=== PATIENT | female | born 1970 | race Asian ===

== ENCOUNTER 2024-05-29 21:26 | Emergency (ER) | payer BC ==
[~2024-05-29] VITALS: Ht 154.9 cm; Wt 54.4 kg
[2024-05-29 21:50] VITALS: BP_SYST 149; PULSE 89; RESP 20; TEMP 98.1; O2SAT 99
[2024-05-29] MEDS: MORPHINE 4 MG INJ. 4 MG/ML VIAL IVP ONE (23:35)
[2024-05-29] MEDS: MORPHINE 2 MG/ML INJ. SYRINGE IVP ONE (23:38)
[2024-05-30 00:07] VITALS: BP_SYST 128; PULSE 71; RESP 17; TEMP 98.4; O2SAT 100
[2024-05-30] MEDS: PROPOFOL 200MG/ 20ML VIAL (DIPRIVAN) IV ONE (00:11)
[2024-05-30] MEDS ORDERED: IBUP-1969 PO (00:46)
[2024-05-30] MEDS ORDERED: HYDR-3917 PO (00:46)
== END 2024-05-30 00:07 | disposition home or self-care (01) ==
LOC: SED 21:26
DX: S43.085A Other dislocation of left shoulder joint, initial encounter (principal); W18.39XA Other fall on same level, initial encounter; Y93.89 Activity, other specified; Y92.89 Other specified places as the place of occurrence of the external cause; Y99.8 Other external cause status
CPT/HCPCS: 99285; 23650; 96374; 73020; 73030; 99152; J2704; J2270